=== PATIENT | female | born 1980 | race Caucasian/White ===

== ENCOUNTER → 2016-10-14 | Outpatient (CLI) | payer BC, OTHER ==
--- NOTE | 2016-10-14 14:44 | XR ---
EXAMINATION TYPE: XR chest 2V DATE OF EXAM: 10/14/2016 2:29 PM COMPARISON: 12/31/2014 TECHNIQUE: PA and lateral views submitted. HISTORY: Cough FINDINGS: The lungs are clear and there is no pneumothorax, pleural effusion, or focal pneumonia. Biapical pl eural thickening. Hypertrophic and degenerative change. IMPRESSION: 1. No acute process.
== END | disposition home or self-care (01) ==
LOC: RADXRMAIN 14:05
PROVIDERS: ATTEND Family Medicine
DX: R05 Cough (principal); J45.901 Unspecified asthma with (acute) exacerbation
CPT/HCPCS: 71020

== ENCOUNTER 2019-09-10 09:41 | Emergency (ER) | payer OTHER ==
[2019-09-10 10:09] VITALS: TEMP 98.9
[2019-09-10] MEDS ORDERED: ONDANSETRON 4 MG/2 ML VIAL IVP STA (10:31)
[2019-09-10] MEDS ORDERED: KETOROLAC 30 MG/ML 1 ML VIAL IVP STA (10:31)
[2019-09-10] MEDS ORDERED: SODIUM CHLORIDE 0.9% 1,000 ML IV STA (10:31)
[2019-09-10] MEDS ORDERED: PANTOPRAZOLE 40 MG/10 ML VIAL IVP STA (10:31)
--- NOTE | 2019-09-10 10:52 | ED ---
Abdominal Pain HPI - General Chief Complaint: Abdominal Pain Stated Complaint: upper abd pain Time Seen by Provider: 09/10/19 10:10 Source: patient Limitations: no limitations - History of Present Illness Initial Comments: Patient is a 39-year-old female presenting to emergency Department with complaints of upper abdominal pain since last night. Patient states she noticed the pain last night before bedtime however she thought it was just gas and went to bed. Patient states she woke up this morning feeling okay initially but then the pain came back even worse. Patient describes the pain as pressure, sharp at times, with some radiation into the back. Patient admits to history of multiple C-sections, no other abdominal surgeries. She does admit to mild nausea secondary to pain, no vomiting, no fever. Patient had normal bowel movement this morning. She denies any dysuria. She has no other complaints at this time. - Related Data Home Medications Medication Instructions Recorded Confirmed Albuterol Inhaler [Ventolin Hfa 2 puff INHALATION RT-Q4H PRN 07/03/15 09/10/19 Inhaler] Cetirizine HCl 10 mg PO DAILY 09/10/19 09/10/19 Fluticasone Nasal [place] [Flonase 2 spray EA NOSTRIL DAILY 09/10/19 09/10/19 Nasal [place]] Fluticasone/Salmeterol 1 puff INHALATION RT-DAILY 09/10/19 09/10/19 [Fluticasone-Salmeterol 232-14] Montelukast [Singulair] 10 mg PO DAILY 09/10/19 09/10/19 Previous Rx's Medication Instructions Recorded Ketorolac [Toradol] 10 mg PO Q8HR #10 tab 09/10/19 Ondansetron Odt [Zofran Odt] 4 mg PO Q8HR PRN #10 tab 09/10/19 Allergies Allergy/AdvReac Type Severity Reaction Status Date / Time No Known Allergies Allergy Verified 09/10/19 12:09 Review of Systems ROS Statement: Those systems with pertinent positive or pertinent negative responses have been documented in the HPI. ROS Other: All systems not noted in ROS Statement are negative. Past Medical History Past Medical History: Hypertension Additional Past Medical History / Comment(s): chronic hypertension on meds History of Any Multi-Drug Resistant Organisms: None Reported Past Surgical History: Section Past Anesthesia/Blood Transfusion Reactions: Postoperative Nausea & Vomiting (PONV) Additional Past Anesthesia/Blood Transfusion Reaction / Comment(s): discussed with aa before surgery Past Psychological History: No Psychological Hx Reported Smoking Status: Never smoker Past Alcohol Use History: None Reported Past Drug Use History: None Reported - Past Family History Mother History Unknown: Yes Family Medical History: Hypertension, Rheumatoid Arthritis (RA) General Exam - General Exam Comments Initial Comments: GENERAL: Well-appearing, well-nourished and in no acute distress. HEAD: Atraumatic, normocephalic. EYES: Pupils equal round and reactive to light, extraocular movements intact, sclera anicteric, conjunctiva are normal. ENT: TMs normal, nares patent, oropharynx clear without exudates. Moist mucous membranes. NECK: Normal range of motion, supple without lymphadenopathy or JVD. LUNGS: Breath sounds clear to auscultation bilaterally and equal. No wheezes rales or rhonchi. HEART: Regular rate and rhythm without murmurs, rubs or gallops. ABDOMEN: Tender to palpation epigastric and right upper quadrant. Positive Putnam sign. Soft, normoactive bowel sounds. No rebound. No masses appreciated. : Deferred EXTREMITIES: Normal range of motion, no pitting or edema. No clubbing or cyanosis. NEUROLOGICAL: Normal speech, normal gait. PSYCH: Normal mood, normal affect. SKIN: Warm, Dry, normal turgor, no rashes or lesions noted. Limitations: no limitations Course Vital Signs 09/10/19 09/10/19 09/10/19 10:06 10:08 11:08 Temperature 98.9 F Pulse Rate 94 88 Respiratory 16 20 20 Rate Blood Pressure 190/103 162/99 O2 Sat by Pulse 97 98 Oximetry 09/10/19 12:41 Temperature Pulse Rate Respiratory 20 Rate Blood Pressure O2 Sat by Pulse Oximetry Medical Decision Making - Medical Decision Making Patient is a 39-year-old female presenting with right upper quadrant pain since last night. Lab work shows slightly elevated liver enzymes, bilirubin is normal. Urine is normal, not . Ultrasound of the gallbladder shows gallstones present, no signs of acute cholecystitis. I discussed with patient this is most likely biliary colic. Patient will be given referral to surgeon for further management. Patient was given fluids, pain control and reports improvement in her symptoms. She will be sent home with some Toradol and Zofran to take as needed for nausea. She is in agreement with this plan of care. Return parameters were discussed with the patient she verbalized understanding. Case discussed with Dr. Adamson. - Lab Data Result diagrams: 09/10/19 11:09/10/19 11:01 Lab Results 09/10/19 09/10/19 09/10/19 Range/Units 11:01 11:01 11:01 WBC 7.1 (3.8-10.6) k/uL RBC 5.02 (3.80-5.40) m/uL Hgb 15.3 (11.4-16.0) gm/dL Hct 45.2 (34.0-46.0) % MCV 90.1 (80.0-100.0) fL MCH 30.6 (25.0-35.0) pg MCHC 33.9 (31.0-37.0) g/dL RDW 12.8 (11.5-15.5) % Plt Count 164 (150-450) k/uL Neutrophils % 64 % Lymphocytes % 25 % Monocytes % 5 % Eosinophils % 4 % Basophils % 1 % Neutrophils # 4.5 (1.3-7.7) k/uL Lymphocytes # 1.8 (1.0-4.8) k/uL Monocytes # 0.3 (0-1.0) k/uL Eosinophils # 0.3 (0-0.7) k/uL Basophils # 0.1 (0-0.2) k/uL PT (9.0-12.0) sec INR (<1.2) APTT (22.0-30.0) sec Sodium 140 (137-145) mmol/L Potassium 4.4 (3.5-5.1) mmol/L Chloride 105 (98-107) mmol/L Carbon Dioxide 22 (22-30) mmol/L Anion Gap 13 mmol/L BUN 15 (7-17) mg/dL Creatinine 0.73 (0.52-1.04) mg/dL Est GFR (CKD-EPI)AfAm >90 (>60 ml/min/1.73 sqM) Est GFR (CKD-EPI)NonAf >90 (>60 ml/min/1.73 sqM) Glucose 159 H (74-99) mg/dL Calcium 10.8 H (8.4-10.2) mg/dL Total Bilirubin 1.0 (0.2-1.3) mg/dL AST 134 H (14-36) U/L ALT 117 H (4-34) U/L Alkaline Phosphatase 111 (38-126) U/L Total Protein 8.2 (6.3-8.2) g/dL Albumin 4.8 (3.5-5.0) g/dL Amylase 59 (30-110) U/L Lipase 111 (23-300) U/L Urine Color Urine Appearance (Clear) Urine pH (5.0-8.0) Ur Specific [place] (1.001-1.035) Urine Protein (Negative) Urine Glucose (UA) (Negative) Urine Ketones (Negative) Urine Blood (Negative) Urine Nitrite (Negative) Urine Bilirubin (Negative) Urine Urobilinogen (<2.0) mg/dL Ur Leukocyte Esterase (Negative) Urine HCG, Qual Not Detected (Not Detectd) 09/10/19 09/10/19 Range/Units 11:01 12:09 WBC (3.8-10.6) k/uL RBC (3.80-5.40) m/uL Hgb (11.4-16.0) gm/dL Hct (34.0-46.0) % MCV (80.0-100.0) fL MCH (25.0-35.0) pg MCHC (31.0-37.0) g/dL RDW (11.5-15.5) % Plt Count (150-450) k/uL Neutrophils % % Lymphocytes % % Monocytes % % Eosinophils % % Basophils % % Neutrophils # (1.3-7.7) k/uL Lymphocytes # (1.0-4.8) k/uL Monocytes # (0-1.0) k/uL Eosinophils # (0-0.7) k/uL Basophils # (0-0.2) k/uL PT 9.8 (9.0-12.0) sec INR 0.9 (<1.2) APTT 26.7 (22.0-30.0) sec Sodium (137-145) mmol/L Potassium (3.5-5.1) mmol/L Chloride (98-107) mmol/L Carbon Dioxide (22-30) mmol/L Anion Gap mmol/L BUN (7-17) mg/dL Creatinine (0.52-1.04) mg/dL Est GFR (CKD-EPI)AfAm (>60 ml/min/1.73 sqM) Est GFR (CKD-EPI)NonAf (>60 ml/min/1.73 sqM) Glucose (74-99) mg/dL Calcium (8.4-10.2) mg/dL Total Bilirubin (0.2-1.3) mg/dL AST (14-36) U/L ALT (4-34) U/L Alkaline Phosphatase (38-126) U/L Total Protein (6.3-8.2) g/dL Albumin (3.5-5.0) g/dL Amylase (30-110) U/L Lipase (23-300) U/L Urine Color Yellow Urine Appearance Clear (Clear) Urine pH 7.0 (5.0-8.0) Ur Specific [place]tt 1.016 (1.001-1.035) Urine Protein Negative (Negative) Urine Glucose (UA) Negative (Negative) Urine Ketones Negative (Negative) Urine Blood Negative (Negative) Urine Nitrite Negative (Negative) Urine Bilirubin Negative (Negative) Urine Urobilinogen <2.0 (<2.0) mg/dL Ur Leukocyte Esterase Negative (Negative) Urine HCG, Qual (Not Detectd) Disposition Clinical Impression: RUQ pain, Biliary colic Disposition: HOME SELF-CARE Condition: Stable Instructions (If sedation given, give patient instructions): Biliary Colic (ED) Additional Instructions: Please return to the Emergency Department if symptoms worsen or any other concerns. Follow-up with surgeon/GI as discussed. Limit fatty foods. Prescriptions: Ketorolac [Toradol] 10 mg PO Q8HR #10 tab Ondansetron Odt [Zofran Odt] 4 mg PO Q8HR PRN #10 tab PRN Reason: Nausea Is patient prescribed a controlled substance at d/c from ED?: No Referrals: Mick Trevizo [Primary Care Provider] - 1-2 days Johnson Maher MD [STAFF PHYSICIAN] - 1-2 days
[2019-09-10 11:19] LABS: Appearance,Urine Clear (Clear); Bilirubin,Urine Negative (Negative); Blood,Urine Negative (Negative); Color,Urine Yellow; Glucose,Urine (UA) Negative (Negative); Ketones,Urine Negative (Negative); Leukocyte Esterase,Urine Negative (Negative); Nitrite,Urine Negative (Negative); Protein,Urine Negative (Negative); Specific Gravity,Urine 1.016 (1.001-1.035); Urobilinogen,Urine <2.0 mg/dL (<2.0)
[2019-09-10 11:20] LABS: Basophils # (A) 0.1 k/uL (0-0.2); Basophils % (A) 1 %; Eosinophils # (A) 0.3 k/uL (0-0.7); Eosinophils % (A) 4 %; HCT 45.2 % (34.0-46.0); HGB 15.3 gm/dL (11.4-16.0); Lymphocytes # (A) 1.8 k/uL (1.0-4.8); Lymphocytes % (A) 25 %; MCH 30.6 pg (25.0-35.0); MCHC 33.9 g/dL (31.0-37.0); MCV 90.1 fL (80.0-100.0); Mean Platelet Volume 7.8; Monocytes # (A) 0.3 k/uL (0-1.0); Monocytes % (A) 5 %; Neutrophils # (A) 4.5 k/uL (1.3-7.7); Neutrophils % (A) 64 %; Platelet Count 164 k/uL (150-450); RBC 5.02 m/uL (3.80-5.40); RDW 12.8 % (11.5-15.5); WBC 7.1 k/uL (3.8-10.6)
[2019-09-10 11:26] LABS: ALT 117 U/L (4-34); AST 134 U/L (14-36); African American GFR (CKD) >90 (>60 ml/min/1.73 sqM); Albumin 4.8 g/dL (3.5-5.0); Alkaline Phosphatase 111 U/L (38-126); Amylase 59 U/L (30-110); Anion Gap 13 mmol/L; Blood Urea Nitrogen 15 mg/dL (7-17); Calcium 10.8 mg/dL (8.4-10.2); Carbon Dioxide 22 mmol/L (22-30); Chloride 105 mmol/L (98-107); Glucose 159 mg/dL (74-99); Non-African American GFR(CKD) >90 (>60 ml/min/1.73 sqM); Potassium 4.4 mmol/L (3.5-5.1); Sodium 140 mmol/L (137-145); Total Protein 8.2 g/dL (6.3-8.2)
[2019-09-10 11:31] VITALS: RESP 20
[2019-09-10 11:32] VITALS: BP 162/99; PULSE 88
--- NOTE | 2019-09-10 11:39 | US ---
EXAMINATION TYPE: US gallbladder DATE OF EXAM: 09/10/2019 COMPARISON: NONE CLINICAL HISTORY: RUQ pain, nausea. RUQ pain and nausea. EXAM MEASUREMENTS: Liver Length: 19.4 cm Gallbladder Wall: .4 cm CBD: .7 cm Right Kidney: 12.7 x 5.0 x 6.5 cm Pancreas: Obscured by bowel gas Liver: Increased attenuation hepatomegaly. Gallbladder: Gallstones seen. Evidence for sonographic Putnam's sign: Yes CBD: upper limits. Right Kidney: Sponge appearance. IMPRESSION: 1. Hepatomegaly with underlying fatty hepatic infiltration. 2. Uncomplicated cholelithiasis.
[2019-09-10 12:26] LABS: INR 0.9 (<1.2); Partial Thromboplastin Time 26.7 sec (22.0-30.0); Prothrombin Time 9.8 sec (9.0-12.0)
== END 2019-09-10 12:42 | disposition home or self-care (01) ==
LOC: EC 09:41
DX: K80.50 Calculus of bile duct without cholangitis or cholecystitis without obstruction (principal); I10 Essential (primary) hypertension; R74.8 Abnormal levels of other serum enzymes
CPT/HCPCS: 36415; 80053; 82150; 83690; 85025; 85610; 85730; 81003; 81025; 76705; 99284; 96374; 96375 ×2; 96361; J2405; J1885; C9113

== ENCOUNTER → 2019-09-19 | Outpatient (CLI) | payer OTHER ==
--- NOTE | 2019-09-19 14:30 | XR ---
EXAMINATION TYPE: XR chest 2V DATE OF EXAM: 09/19/2019 COMPARISON: 10/14/2016 TECHNIQUE: PA and lateral views submitted. HISTORY: Cough FINDINGS: Left lower lobe infiltrate. No pleural effusion or pneumothorax. 1 cm nodule left lung apex. No overt failure. Heart size normal. IMPRESSION: 1. Left lower lobe infiltrate correlate for pneumonia. 2. There is a 1 cm nodule left lung apex. Recommend CT chest.
== END ==
LOC: RADXRMAIN 13:52
PROVIDERS: ATTEND Family Medicine
DX: R91.1 Solitary pulmonary nodule (principal); R91.8 Other nonspecific abnormal finding of lung field; J45.901 Unspecified asthma with (acute) exacerbation
CPT/HCPCS: 71046

== ENCOUNTER → 2019-10-09 | Outpatient (CLI) | payer OTHER ==
--- NOTE | 2019-10-09 12:28 | CT ---
EXAMINATION TYPE: CT chest wo con DATE OF EXAM: 10/09/2019 COMPARISON: Chest x-ray dated 09/19/2019 HISTORY: Lung nodule CT DLP: 570.7 mGycm. Automated Exposure Control for Dose Reduction was Utilized. TECHNIQUE: CT scan of the thorax is performed without IV contrast. FINDINGS: LUNGS: The lungs are grossly clear, there is no concerning parenchymal mass identified. There is a ca lcified right apical benign granuloma measuring 5 mm on series 4 image 16. There is no pleural effusi on or pneumothorax seen. The tracheobronchial tree is patent. Lingular atelectasis and/or scarring i s seen. Scarring is also seen at the lung bases that is linear. MEDIASTINUM: Lack of IV contrast is noted to limit evaluation for mediastinal and especially hilar ad enopathy. There are no definitive greater than 1 cm hilar or mediastinal lymph nodes. No cardiomega ly or pericardial effusion is seen. OTHER: Hepatic steatosis and cholelithiasis are incidentally seen in the limited images of the unenha nced upper abdomen. Mild multilevel degenerative change of the spine. IMPRESSION: 1. The previously seen lung nodule on the left upper lobe appears artifactual on the prior chest x-ra y of 09/19/2019 as no left pulmonary nodule is seen on CT. Multifocal pleural parenchymal scarring is noted in the lingula at the lung bases. 2. Calcified benign right apical 5 mm granuloma. 3. Hepatic steatosis and cholelithiasis.
== END | disposition home or self-care (01) ==
LOC: RADCTMAIN 11:43
PROVIDERS: ATTEND Family Medicine
DX: J98.4 Other disorders of lung (principal); J84.10 Pulmonary fibrosis, unspecified; K76.0 Fatty (change of) liver, not elsewhere classified; K80.20 Calculus of gallbladder without cholecystitis without obstruction
CPT/HCPCS: 71250

== ENCOUNTER 2020-07-29 06:34 | Observation (INO) | payer OTHER ==
[2020-07-29] MEDS ORDERED: SODIUM CHLORIDE 0.9% 1,000 ML IV STA (06:48)
[2020-07-29] MEDS ORDERED: HYDROmorphone 0.5 MG/0.5 ML SYRINGE IVP STA (06:54)
[2020-07-29] MEDS: ONDANSETRON 4 MG/2 ML VIAL IVP STA ×2 (07:04→16:30)
[2020-07-29 07:08] LABS: Basophils # (A) 0.1 k/uL (0-0.2); Basophils % (A) 1 %; Eosinophils # (A) 0.2 k/uL (0-0.7); Eosinophils % (A) 2 %; HCT 42.9 % (34.0-46.0); Lymphocytes # (A) 1.9 k/uL (1.0-4.8); Lymphocytes % (A) 19 %; MCH 31.8 pg (25.0-35.0); MCHC 34.9 g/dL (31.0-37.0); MCV 91.3 fL (80.0-100.0); Mean Platelet Volume 6.8; Monocytes # (A) 0.5 k/uL (0-1.0); Monocytes % (A) 5 %; Neutrophils # (A) 7.3 k/uL (1.3-7.7); Neutrophils % (A) 73 %; Platelet Count 299 k/uL (150-450); RDW 12.5 % (11.5-15.5)
--- NOTE | 2020-07-29 07:14 | ED ---
Abdominal Pain HPI - General Chief Complaint: Abdominal Pain Stated Complaint: Abd Pain Time Seen by Provider: 07/29/20 06:43 Source: patient, RN notes reviewed Mode of arrival: ambulatory Limitations: no limitations - History of Present Illness Initial Comments: This a 40-year-old female presents emergency Department chief complaint of right upper quadrant pain. Patient states started in the middle of night. Patient states is severe pain on her right side into her back. Patient states that she had similar pain like this in September and which she was diagnosed with cholelithiasis was scheduled for surgery but was canceled secondary to Covid. Patient states that she cannot remember the surgeon's name. Patient does admit to nausea no vomiting no diarrhea no constipation. Patient states that nothing is making her pain feel better or if no history kidney stones. - Related Data Home Medications Medication Instructions Recorded Confirmed Albuterol Inhaler (Mhu) [Ventolin 2 puff INHALATION RT-Q4H PRN 07/03/15 09/10/19 Hfa Inhaler (Mhu)] Cetirizine HCl 10 mg PO DAILY 09/10/19 09/10/19 Fluticasone Nasal [place] [Flonase 2 spray EA NOSTRIL DAILY 09/10/19 09/10/19 Nasal [place]] Fluticasone/Salmeterol 1 puff INHALATION RT-DAILY 09/10/19 09/10/19 [Fluticasone-Salmeterol 232-14] Montelukast [Singulair] 10 mg PO DAILY 09/10/19 09/10/19 Previous Rx's Medication Instructions Recorded Ketorolac [Toradol] 10 mg PO Q8HR #10 tab 09/10/19 Ondansetron Odt [Zofran Odt] 4 mg PO Q8HR PRN #10 tab 09/10/19 Allergies Allergy/AdvReac Type Severity Reaction Status Date / Time No Known Allergies Allergy Verified 07/29/20 06:41 Review of Systems ROS Statement: Those systems with pertinent positive or pertinent negative responses have been documented in the HPI. ROS Other: All systems not noted in ROS Statement are negative. Past Medical History Past Medical History: Hypertension Additional Past Medical History / Comment(s): chronic hypertension on meds History of Any Multi-Drug Resistant Organisms: None Reported Past Surgical History: Section Past Anesthesia/Blood Transfusion Reactions: Postoperative Nausea & Vomiting (PONV) Additional Past Anesthesia/Blood Transfusion Reaction / Comment(s): discussed with aa before surgery Past Psychological History: No Psychological Hx Reported Smoking Status: Never smoker Past Alcohol Use History: None Reported Past Drug Use History: None Reported - Past Family History Mother History Unknown: Yes Family Medical History: Hypertension, Rheumatoid Arthritis (RA) General Exam Limitations: no limitations General appearance: alert, in no apparent distress Head exam: Present: atraumatic, normocephalic, normal inspection Eye exam: Present: normal appearance, PERRL, EOMI. Absent: scleral icterus, conjunctival injection, periorbital swelling ENT exam: Present: normal exam, normal oropharynx, mucous membranes moist Neck exam: Present: normal inspection, full ROM. Absent: tenderness, m eningismus, lymphadenopathy Respiratory exam: Present: normal lung sounds bilaterally. Absent: respiratory distress, wheezes, rales, rhonchi, stridor Cardiovascular Exam: Present: regular rate, normal rhythm, normal heart sounds. Absent: systolic murmur, diastolic murmur, rubs, gallop, clicks GI/Abdominal exam: Present: soft, tenderness (Right upper quadrant moderate), normal bowel sounds. Absent: distended, guarding, rebound, rigid Back exam: Absent: CVA tenderness (R), CVA tenderness (L) Skin exam: Present: warm, dry, intact, normal color. Absent: rash Course Vital Signs 07/29/20 06:37 Temperature 97.6 F Pulse Rate 79 Respiratory 18 Rate Blood Pressure 139/90 O2 Sat by Pulse 100 Oximetry Medical Decision Making - Medical Decision Making 40-year-old female presented for abdominal pain. Patient has acute cholecystitis. Patient has mild transaminitis,, white count is 10, afebrile. Patient had severe nausea and pain patient will be admitted to on-call surgery patient was started on antibiotics. - Lab Data Result diagrams: 07/29/20 06:56 07/29/20 06:56 Lab Results 07/29/20 07/29/20 07/29/20 Range/Units 06:56 06:56 06:56 WBC 10.0 (3.8-10.6) k/uL RBC 4.70 (3.80-5.40) m/uL Hgb 15.0 (11.4-16.0) gm/dL Hct 42.9 (34.0-46.0) % MCV 91.3 (80.0-100.0) fL MCH 31.8 (25.0-35.0) pg MCHC 34.9 (31.0-37.0) g/dL RDW 12.5 (11.5-15.5) % Plt Count 299 (150-450) k/uL MPV 6.8 Neutrophils % 73 % Lymphocytes % 19 % Monocytes % 5 % Eosinophils % 2 % Basophils % 1 % Neutrophils # 7.3 (1.3-7.7) k/uL Lymphocytes # 1.9 (1.0-4.8) k/uL Monocytes # 0.5 (0-1.0) k/uL Eosinophils # 0.2 (0-0.7) k/uL Basophils # 0.1 (0-0.2) k/uL Sodium 140 (137-145) mmol/L Potassium 4.1 (3.5-5.1) mmol/L Chloride 107 (98-107) mmol/L Carbon Dioxide 26 (22-30) mmol/L Anion Gap 7 mmol/L BUN 21 H (7-17) mg/dL Creatinine 0.88 (0.52-1.04) mg/dL Est GFR (CKD-EPI)AfAm >90 (>60 ml/min/1.73 sqM) Est GFR (CKD-EPI)NonAf 82 (>60 ml/min/1.73 sqM) Glucose 142 H (74-99) mg/dL Plasma Lactic Acid Rey (0.7-2.0) mmol/L Calcium 9.6 (8.4-10.2) mg/dL Total Bilirubin 0.7 (0.2-1.3) mg/dL AST 80 H (14-36) U/L ALT 75 H (4-34) U/L Alkaline Phosphatase 55 (38-126) U/L Total Protein 7.7 (6.3-8.2) g/dL Albumin 4.7 (3.5-5.0) g/dL Amylase 62 (30-110) U/L Lipase 177 (23-300) U/L Urine Color Yellow Urine Appearance Cloudy H (Clear) Urine pH 6.0 (5.0-8.0) Ur Specific [place] 1.019 (1.001-1.035) Urine Protein Negative (Negative) Urine Glucose (UA) Negative (Negative) Urine Ketones Negative (Negative) Urine Blood Negative (Negative) Urine Nitrite Negative (Negative) Urine Bilirubin Negative (Negative) Urine Urobilinogen <2.0 (<2.0) mg/dL Ur Leukocyte Esterase Negative (Negative) Urine RBC 3 (0-5) /hpf Urine WBC 1 (0-5) /hpf Ur Squamous Epith Cells 16 H (0-4) /hpf Urine Bacteria Occasional H (None) /hpf Hyaline Casts 1 (0-2) /lpf Urine Mucus Occasional H (None) /hpf Urine Sperm Rare (None) /hpf Urine HCG, Qual (Not Detectd) 07/29/20 07/29/20 Range/Units 06:56 06:56 WBC (3.8-10.6) k/uL RBC (3.80-5.40) m/uL Hgb (11.4-16.0) gm/dL Hct (34.0-46.0) % MCV (80.0-100.0) fL MCH (25.0-35.0) pg MCHC (31.0-37.0) g/dL RDW (11.5-15.5) % Plt Count (150-450) k/uL MPV Neutrophils % % Lymphocytes % % Monocytes % % Eosinophils % % Basophils % % Neutrophils # (1.3-7.7) k/uL Lymphocytes # (1.0-4.8) k/uL Monocytes # (0-1.0) k/uL Eosinophils # (0-0.7) k/uL Basophils # (0-0.2) k/uL Sodium (137-145) mmol/L Potassium (3.5-5.1) mmol/L Chloride (98-107) mmol/L Carbon Dioxide (22-30) mmol/L Anion Gap mmol/L BUN (7-17) mg/dL Creatinine (0.52-1.04) mg/dL Est GFR (CKD-EPI)AfAm (>60 ml/min/1.73 sqM) Est GFR (CKD-EPI)NonAf (>60 ml/min/1.73 sqM) Glucose (74-99) mg/dL Plasma Lactic Acid Rey 1.0 (0.7-2.0) mmol/L Calcium (8.4-10.2) mg/dL Total Bilirubin (0.2-1.3) mg/dL AST (14-36) U/L ALT (4-34) U/L Alkaline Phosphatase (38-126) U/L Total Protein (6.3-8.2) g/dL Albumin (3.5-5.0) g/dL Amylase (30-110) U/L Lipase (23-300) U/L Urine Color Urine Appearance (Clear) Urine pH (5.0-8.0) Ur Specific [place] (1.001-1.035) Urine Protein (Negative) Urine Glucose (UA) (Negative) Urine Ketones (Negative) Urine Blood (Negative) Urine Nitrite (Negative) Urine Bilirubin (Negative) Urine Urobilinogen (<2.0) mg/dL Ur Leukocyte Esterase (Negative) Urine RBC (0-5) /hpf Urine WBC (0-5) /hpf Ur Squamous Epith Cells (0-4) /hpf Urine Bacteria (None) /hpf Hyaline Casts (0-2) /lpf Urine Mucus (None) /hpf Urine Sperm (None) /hpf Urine HCG, Qual Not Detected (Not Detectd) Disposition Clinical Impression: Acute cholecystitis Disposition: ADMITTED IP TO THIS HOSP Condition: Fair Referrals: Mick Trevizo [Primary Care Provider] - 1-2 days
[2020-07-29 07:17] LABS: ALT 75 U/L (4-34); AST 80 U/L (14-36); African American GFR (CKD) >90 (>60 ml/min/1.73 sqM); Albumin 4.7 g/dL (3.5-5.0); Alkaline Phosphatase 55 U/L (38-126); Amylase 62 U/L (30-110); Anion Gap 7 mmol/L; Blood Urea Nitrogen 21 mg/dL (7-17); Calcium 9.6 mg/dL (8.4-10.2); Carbon Dioxide 26 mmol/L (22-30); Chloride 107 mmol/L (98-107); Glucose 142 mg/dL (74-99); Lipase 177 U/L (23-300); Non-African American GFR(CKD) 82 (>60 ml/min/1.73 sqM); Potassium 4.1 mmol/L (3.5-5.1); Sodium 140 mmol/L (137-145); Total Bilirubin 0.7 mg/dL (0.2-1.3); Total Protein 7.7 g/dL (6.3-8.2)
[2020-07-29 07:25] LABS: Appearance,Urine Cloudy (Clear); Bacteria,Urine Occasional /hpf; Bilirubin,Urine Negative (Negative); Blood,Urine Negative (Negative); Color,Urine Yellow; Glucose,Urine (UA) Negative (Negative); Hyaline Casts,Urine 1 /lpf (0-2); Ketones,Urine Negative (Negative); Leukocyte Esterase,Urine Negative (Negative); Mucus,Urine Occasional /hpf; Nitrite,Urine Negative (Negative); Protein,Urine Negative (Negative); RBC,Urine 3 /hpf (0-5); Specific Gravity,Urine 1.019 (1.001-1.035); Sperm,Urine Rare /hpf; Squamous Epithelial Cell,Urine 16 /hpf (0-4); Urobilinogen,Urine <2.0 mg/dL (<2.0); WBC,Urine 1 /hpf (0-5)
--- NOTE | 2020-07-29 08:08 | US ---
EXAMINATION TYPE: US gallbladder DATE OF EXAM: 07/29/2020 COMPARISON: NONE CLINICAL HISTORY: pain. EXAM MEASUREMENTS: Liver Length: 18.3 cm Gallbladder Wall: 0.4 cm CBD: 0.9 cm Right Kidney: 13.3 x 4.0 x 5.3 cm Patient of large body habitus Pancreas: Obscured by bowel gas Liver: Increased attenuation, enlarged Gallbladder: stones, hyperechoic ring surrounding gallbladder it is difficult to assess whether this is edematous wall or focal fatty sparing in the liver Evidence for sonographic Putnam's sign: tenderness here CBD: wnl Right Kidney: calcified medullary pyramids suggestive of medullary sponge kidneys, cyst measuring 1. 8 x 2.1 x 1.9cm, enlarged IMPRESSION: 1. Cholelithiasis with gallbladder wall thickening. Common bile duct is dilated. Correlate clinically for acute cholecystitis. 2. Fatty liver with hepatomegaly. 3. Medullary sponge kidney changes.
[2020-07-29] MEDS ORDERED: PIPERACILLIN-TAZOBACTAM 3.375 GM in SODIUM CHLORIDE 0.9% 100 ML IVPB STA (08:13)
[2020-07-29] MEDS ORDERED: ONDANSETRON 4 MG/2 ML VIAL IVP PRN (08:17)
[2020-07-29] MEDS ORDERED: NALOXONE 0.4 MG/ML 1 ML VIAL IV PRN (08:17)
[2020-07-29] MEDS: SODIUM CHLORIDE 0.9% 1,000 ML IV SCH ×2 (08:29→19:49)
[2020-07-29] MEDS: HYDROmorphone 0.5 MG/0.5 ML SYRINGE IVP PRN ×2 (09:53→21:20)
--- NOTE | 2020-07-29 13:16 | P.GSHP ---
History of Present Illness H&P Date: 07/29/20 CHIEF COMPLAINT: Abdominal pain HISTORY OF PRESENT ILLNESS: This is a 40-year-old female with a known history of hypertension, asthma, umbilical hernia and . She presents to the emergency room with complaints of right upper quadrant pain that started around 3 AM this morning. She reports that the pain was very severe and radiated to her back. She had similar symptoms like this in September and at that time she was diagnosed with cholelithiasis was scheduled for surgery but it was canceled secondary to COVID patient admits to having nausea and vomiting. She denies any fever or chills. Denies any change in bowel habits. PAST MEDICAL HISTORY: See list. PAST SURGICAL HISTORY: See list. MEDICATIONS: See list. ALLERGIES: See list. SOCIAL HISTORY: No illicit drug use. REVIEW OF SYSTEMS: CONSTITUTIONAL: Denies fever or chills. HEENT: Denies blurred vision, vision changes, or eye pain. Denies hemoptysis CARDIOVASCULAR: Denies chest pain or pressure. RESPIRATORY: No shortness of breath. GASTROINTESTINAL: See HPI for pertinent findings HEMATOLOGIC: Denies bleeding disorders. GENITOURINARY: Denies any blood in urine or increased urinary frequency. SKIN: Denies pruitis. Denies rash. PHYSICAL EXAM: VITAL SIGNS: Reviewed GENERAL: Well-developed in no acute distress. HEENT: No sclera icterus. Extraocular movements grossly intact. Moist buccal mucosa. Head is atraumatic, normocephalic. No nasal drainage. ABDOMEN: Soft. right upper quadrant tenderness with palpation. Nondistended. Small Umbilical hernia NEUROLOGIC: Alert and oriented. Cranial nerves II through XII grossly intact. LABORATORY DATA: WBC 10.0 hemoglobin 15 AST 88 ALT 75 lactic 1.0 lipase 177 urine negative UA no evidence of infection IMAGING: abdominal ultrasound shows evidence of cholelithiasis with gallbladder wall thickening. Common bile duct is dilated. Correlate for acute cholecystitis. Fatty liver with hepatomegaly. And medullary sponge kidney changes. ASSESSMENT: 1. Acute cholecystitis 2. Abdominal pain PLAN: -Patient is scheduled for laparoscopic cholecystectomy with Dr. Maher today -Keep patient nothing by mouth -Continue IV Zosyn -Continue IV fluids -Continue pain medication as needed -Consult medicine for medical management Physician Crane Oiler note has been reviewed by physician. Signing provider agrees with the documented findings, assessment, and plan of care. Past Medical History Past Medical History: Asthma, Hypertension Additional Past Medical History / Comment(s): chronic hypertension on meds History of Any Multi-Drug Resistant Organisms: None Reported Past Surgical History: Section Additional Past Surgical History / Comment(s): 3 C SECTIONS Past Anesthesia/Blood Transfusion Reactions: Postoperative Nausea & Vomiting (PONV) Additional Past Anesthesia/Blood Transfusion Reaction / Comment(s): discussed with aa before surgery Past Psychological History: No Psychological Hx Reported Smoking Status: Never smoker Past Alcohol Use History: None Reported Past Drug Use History: None Reported - Past Family History Mother History Unknown: Yes Family Medical History: Hypertension, Rheumatoid Arthritis (RA) Father Family Medical History: Diabetes Mellitus, Hypertension, Thyroid Disorder Medications and Allergies Home Medications Medication Instructions Recorded Confirmed Type Cetirizine HCl 10 mg PO HS 09/10/19 07/29/20 History Montelukast [Singulair] 10 mg PO HS 09/10/19 07/29/20 History Albuterol Inhaler [Ventolin Hfa 2 puff INHALATION RT-QID PRN 07/29/20 07/29/20 History Inhaler] Fluticasone/Salmeterol [Advair 1 puff INHALATION RT-BID 07/29/20 07/29/20 History 250-50 Diskus] lisinopriL [Zestril] 20 mg PO DAILY 07/29/20 07/29/20 History Allergies Allergy/AdvReac Type Severity Reaction Status Date / Time No Known Allergies Allergy Verified 07/29/20 08:18 Surgical - Exam Vital Signs Temp Pulse Resp BP Pulse Ox 97.6 F 79 18 139/90 100 07/29/20 06:37 07/29/20 06:37 07/29/20 06:37 07/29/20 06:37 07/29/20 06:37 Results - Labs 07/29/20 06:56 07/29/20 06:56 Abnormal Lab Results - Last 24 Hours (Table) 07/29/20 07/29/20 Range/Units 06:56 06:56 BUN 21 H (7-17) mg/dL Glucose 142 H (74-99) mg/dL AST 80 H (14-36) U/L ALT 75 H (4-34) U/L Urine Appearance Cloudy H (Clear) Ur Squamous Epith Cells 16 H (0-4) /hpf Urine Bacteria Occasional H (None) /hpf Urine Mucus Occasional H (None) /hpf Diabetes panel 07/29/20 Range/Units 06:56 Sodium 140 (137-145) mmol/L Potassium 4.1 (3.5-5.1) mmol/L Chloride 107 (98-107) mmol/L Carbon Dioxide 26 (22-30) mmol/L BUN 21 H (7-17) mg/dL Creatinine 0.88 (0.52-1.04) mg/dL Glucose 142 H (74-99) mg/dL Calcium 9.6 (8.4-10.2) mg/dL AST 80 H (14-36) U/L ALT 75 H (4-34) U/L Alkaline Phosphatase 55 (38-126) U/L Total Protein 7.7 (6.3-8.2) g/dL Albumin 4.7 (3.5-5.0) g/dL Calcium panel 07/29/20 Range/Units 06:56 Calcium 9.6 (8.4-10.2) mg/dL Albumin 4.7 (3.5-5.0) g/dL Pituitary panel 07/29/20 Range/Units 06:56 Sodium 140 (137-145) mmol/L Potassium 4.1 (3.5-5.1) mmol/L Chloride 107 (98-107) mmol/L Carbon Dioxide 26 (22-30) mmol/L BUN 21 H (7-17) mg/dL Creatinine 0.88 (0.52-1.04) mg/dL Glucose 142 H (74-99) mg/dL Calcium 9.6 (8.4-10.2) mg/dL Adrenal panel 07/29/20 Range/Units 06:56 Sodium 140 (137-145) mmol/L Potassium 4.1 (3.5-5.1) mmol/L Chloride 107 (98-107) mmol/L Carbon Dioxide 26 (22-30) mmol/L BUN 21 H (7-17) mg/dL Creatinine 0.88 (0.52-1.04) mg/dL Glucose 142 H (74-99) mg/dL Calcium 9.6 (8.4-10.2) mg/dL Total Bilirubin 0.7 (0.2-1.3) mg/dL AST 80 H (14-36) U/L ALT 75 H (4-34) U/L Alkaline Phosphatase 55 (38-126) U/L Total Protein 7.7 (6.3-8.2) g/dL Albumin 4.7 (3.5-5.0) g/dL
[2020-07-29] MEDS ORDERED: ALBUTEROL NEBULIZED 2.5 MG/3 ML INHALATION PRN (13:50)
[2020-07-29] MEDS: PIPERACILLIN-TAZOBACTAM 3.375 GM in SODIUM CHLORIDE 0.9% 100 ML IVPB SCH ×2 (15:44→23:09)
[2020-07-29] MEDS ORDERED: HEPARIN SODIUM,PORCINE 5,000 UNIT/ML 1 ML VIAL ONE (16:27)
[2020-07-29] MEDS ORDERED: HEPARIN SODIUM,PORCINE 5,000 UNIT/ML 1 ML VIAL SQ ONE (16:30)
[2020-07-29] MEDS ORDERED: IV FLUID CONTINUATION 400 ML IV ONE (16:30)
[2020-07-29] MEDS ORDERED: GLYCOPYRROLATE 0.2 MG/ML 2 ML VIAL ONE (17:11)
[2020-07-29] MEDS ORDERED: HYDROmorphone (PF) 1 MG/ML ONE (17:11)
[2020-07-29] MEDS ORDERED: fentaNYL (PF) 50 MCG/ML 2 ML AMP ONE (17:11)
[2020-07-29] MEDS ORDERED: PROPOFOL 10 MG/ML 20 ML VIAL IV ONE (17:11)
[2020-07-29] MEDS ORDERED: KETOROLAC 15 MG/ML 1 ML VIAL ONE (17:11)
[2020-07-29] MEDS ORDERED: SUCCINYLCHOLINE CHLORIDE 100 MG/5 ML SYR IV ONE (17:11)
[2020-07-29] MEDS ORDERED: LIDOCAINE 1% INJ 10MG/ML (20 ML MDV) ONE (17:11)
[2020-07-29] MEDS ORDERED: ROCURONIUM 10 MG/ML (10 ML VIAL) IV ONE (17:11)
[2020-07-29] MEDS ORDERED: NEOSTIGMINE 1 MG/ML 10 ML VIAL ONE (17:11)
[2020-07-29] MEDS ORDERED: MIDAZOLAM 2 MG/2 ML VIAL ONE (17:11)
[2020-07-29] MEDS ORDERED: LIDOCAINE 1%-EPI 1:100,000 20 ML VIAL SQ ONE (17:39)
[2020-07-29] MEDS ORDERED: SODIUM CHLORIDE 0.9% 500 ML 500 ML IV ONE (17:43)
--- NOTE | 2020-07-29 17:54 | P.OP ---
Date of Procedure: 07/29/20 Preoperative Diagnosis: Cholecystitis Postoperative Diagnosis: Cholecystitis Cholelithiasis Procedure(s) Performed: Laparoscopic cholecystectomy Anesthesia: IH Surgeon: Johnson Maher Estimated Blood Loss (ml): 5 Pathology: other (gAll bladder) Condition: stable Disposition: PACU Description of Procedure: The patient was placed on the operating table. The patient received a general endotracheal tube anesthesia. The patients abdomen was prepped and draped in the usual sterile fashion. Through an infraumbilical stab incision, the fascia of the anterior abdominal wall was grasped with a pair of Kochers and then the Veress needle was placed in the peritoneal cavity. Position of the Veress needle was confirmed with positive drop test. The abdomen was then insufflated. After adequate insufflation, the 10 mm trocar was placed in the peritoneal cavity. Following this the laparoscope was placed in the peritoneal cavity. The patient was placed in the head-up, right side up position and then a 5 mm trocar was placed in the right lateral and right subcostal position under direct visualization. A 8 mm trocar was placed in the epigastric position. The gallbladder was grasped in the fundus and infundibulum. Traction on the gallbladder was placed in the lateral and the cephalad positions. The triangle of Calot was visualized.. The cystic duct was bluntly dissected until the union of the cystic duct and common bile duct was seen. A critical view of safety was achieved. The cystic duct was then divided and sealed with the Harmonic scissors. A PDS Endoloop was then placed throughout the cystic duct stump. The cystic artery divided and sealed with the Harmonic scissors. The gallbladder was then removed from the liver bed using Harmonic scissors. The gallbladder was then extracted through the epigastric port site. Operative field was checked for any bleeding spots and Harmonic scissors was used to coagulate the liver bed. The abdomen was irrigated. The trocars were removed. The skin was closed using interrupted 3-0 Vicryl suture. Dermabond dressing were applied. The patient tolerated the procedure well.
[2020-07-29] MEDS: SYMBICORT 80-4.5 MCG INHALER INHALATION SCH (20:00)
--- NOTE | 2020-07-29 21:47 | P.CONS ---
History of Present Illness - Reason for Consult Consult date: 07/29/20 - History of Present Illness Patient is a 40-year-old female with a PMH of hypertension, moderate persistent asthma, and cholelithiasis who presented to the emergency room with acute onset of right upper quadrant abdominal pain. The patient was found to have acute cholecystitis on a right upper quadrant ultrasound and was subsequently admitted to the surgery service for cholecystectomy. The patient underwent a cholecy stectomy earlier today with no immediate postoperative complications. The patient was seen postoperatively. She reported excellent control of her pain, currently at a 0 out of 10. She also denied any additional complaints. She denied chest discomfort, shortness of breath, palpitations, nausea, vomiting. Also denied cough, fever, chills. Denied weakness, and numbness, tingling. Notes compliance with her medications including inhalers at home. Review of Systems Pertinent positives and negatives as discussed in HPI, a complete review of systems was performed and all other systems are negative. Past Medical History Past Medical History: Asthma, Hypertension Additional Past Medical History / Comment(s): chronic hypertension on meds History of Any Multi-Drug Resistant Organisms: None Reported Past Surgical History: Section Additional Past Surgical History / Comment(s): 3 C SECTIONS Past Anesthesia/Blood Transfusion Reactions: Postoperative Nausea & Vomiting (PONV) Additional Past Anesthesia/Blood Transfusion Reaction / Comm: discussed with aa before surgery Past Psychological History: No Psychological Hx Reported Smoking Status: Never smoker Past Alcohol Use History: None Reported Past Drug Use History: None Reported - Past Family History Mother History Unknown: Yes Family Medical History: Hypertension, Rheumatoid Arthritis (RA) Father Family Medical History: Diabetes Mellitus, Hypertension, Thyroid Disorder Medications and Allergies Home Medications Medication Instructions Recorded Confirmed Type Cetirizine HCl 10 mg PO HS 09/10/19 07/29/20 History Montelukast [Singulair] 10 mg PO HS 09/10/19 07/29/20 History Albuterol Inhaler [Ventolin Hfa 2 puff INHALATION RT-QID PRN 07/29/20 07/29/20 History Inhaler] Fluticasone/Salmeterol [Advair 1 puff INHALATION RT-BID 07/29/20 07/29/20 History 250-50 Diskus] lisinopriL [Zestril] 20 mg PO DAILY 07/29/20 07/29/20 History Allergies Allergy/AdvReac Type Severity Reaction Status Date / Time No Known Allergies Allergy Verified 07/29/20 16:25 Physical Exam Vitals: Vital Signs Temp Pulse Pulse Pulse Pulse Resp BP 07/29/20 20:28 77 16 07/29/20 19:58 69 16 07/29/20 19:43 69 16 07/29/20 19:28 70 16 07/29/20 19:13 79 16 07/29/20 18:58 97.9 F 89 16 07/29/20 18:46 76 16 07/29/20 18:35 74 18 07/29/20 18:09 71 16 07/29/20 17:54 97.0 F L 72 16 07/29/20 16:26 97.8 F 96 16 07/29/20 10:00 98.1 F 77 20 07/29/20 09:56 98.1 F 77 20 07/29/20 09:00 98.2 F 78 18 140/79 07/29/20 06:37 97.6 F 79 18 139/90 BP Pulse Ox 07/29/20 20:28 132/81 98 07/29/20 19:58 124/81 96 07/29/20 19:43 129/82 91 L 07/29/20 19:28 134/83 96 07/29/20 19:13 117/74 94 L 07/29/20 18:58 135/79 94 L 07/29/20 18:46 144/65 95 07/29/20 18:35 132/61 97 07/29/20 18:09 129/60 100 07/29/20 17:54 130/58 97 07/29/20 16:26 154/72 99 07/29/20 10:00 138/80 99 07/29/20 09:56 138/80 99 07/29/20 09:00 98 07/29/20 06:37 100 Intake and Output 07/29/20 07/29/20 07/29/20 06:59 14:59 22:59 Intake Total 500 Output Total 5 Balance 495 Intake: IV 500 Output: Estimated Blood Loss 5 Other: Voiding Method Toilet # Voids 1 Weight 105.233 kg 105.233 kg 105.233 kg General: non toxic, no distress, appears at stated age, morbidly obese Derm: no unusual rashes/lesions no unusual ecchymoses, warm, dry Head: atraumatic, normocephalic, symmetric Eyes: EOMI, no lid lag, anicteric sclera, pupils equal round reactive to light ENT: Nose and ears atraumatic, no thrush, no pharyngeal erythema Neck: No thyromegaly, no cervical lymphadenopathy, trachea midline, supple Mouth: no lip lesion, mucus membranes moist Cardiovascular: S1S2 reg, no murmur, positive posterior tibial pulse bilateral, no edema, capillary refill less than 2 seconds Lungs: CTA bilateral, no rhonchi, no rales , no accessory muscle use Abdominal: soft, postsurgical laparoscopic cholecystectomy, laparoscopic incisions closed, nontender to palpation, no guarding, no appreciable organomegaly, normal bowel sounds Ext: no gross muscle atrophy, muscle strength 5 out of 5 in all 4 extremities grossly, no contractures, Neuro: CN II-XI grossly intact, light touch intact all 4 extremities, finger to nose within normal limits, Psych: Alert, oriented, appropriate affect Results CBC & Chem 7: 07/29/20 06:56 07/29/20 06:56 Labs: Abnormal Lab Results - Last 24 Hours (Table) 07/29/20 07/29/20 Range/Units 06:56 06:56 BUN 21 H (7-17) mg/dL Glucose 142 H (74-99) mg/dL AST 80 H (14-36) U/L ALT 75 H (4-34) U/L Urine Appearance Cloudy H (Clear) Ur Squamous Epith Cells 16 H (0-4) /hpf Urine Bacteria Occasional H (None) /hpf Urine Mucus Occasional H (None) /hpf Assessment and Plan Plan: Hypertension -Continue with home lisinopril Moderate persistent asthma -Continue with home inhalers Hyperglycemia -Check A1c Abnormal LFTs -Likely secondary to cholecystitis Status post laparoscopic cholecystectomy -Management including pain control as per the surgery service
[2020-07-29] MEDS: METOCLOPRAMIDE 5 MG/ML 2 ML VIAL IVP SCH (23:45)
[2020-07-29] MEDS: IBUPROFEN 600 MG TAB PO PRN (23:45)
[2020-07-30] MEDS: HYDROmorphone 0.5 MG/0.5 ML SYRINGE IVP PRN (04:30)
[2020-07-30] MEDS: SODIUM CHLORIDE 0.9% 1,000 ML IV SCH ×2 (06:23→07:59)
[2020-07-30] MEDS: METOCLOPRAMIDE 5 MG/ML 2 ML VIAL IVP SCH ×2 (06:26→13:13)
[2020-07-30 06:49] LABS: Basophils % (A) 0 %; Eosinophils % (A) 0 %; Lymphocytes # (A) 1.6 k/uL (1.0-4.8); Lymphocytes % (A) 19 %; MCH 32.1 pg (25.0-35.0); MCHC 35.1 g/dL (31.0-37.0); MCV 91.5 fL (80.0-100.0); Mean Platelet Volume 6.5; Monocytes # (A) 0.4 k/uL (0-1.0); Monocytes % (A) 5 %; Neutrophils # (A) 6.1 k/uL (1.3-7.7); Neutrophils % (A) 75 %; Platelet Count 242 k/uL (150-450); RBC 4.04 m/uL (3.80-5.40); RDW 12.5 % (11.5-15.5); WBC 8.2 k/uL (3.8-10.6)
[2020-07-30 07:01] LABS: ALT 168 U/L (4-34); AST 89 U/L (14-36); African American GFR (CKD) >90 (>60 ml/min/1.73 sqM); Albumin 3.6 g/dL (3.5-5.0); Alkaline Phosphatase 43 U/L (38-126); Anion Gap 4 mmol/L; Blood Urea Nitrogen 16 mg/dL (7-17); Calcium 8.5 mg/dL (8.4-10.2); Carbon Dioxide 25 mmol/L (22-30); Chloride 109 mmol/L (98-107); Glucose 100 mg/dL (74-99); Non-African American GFR(CKD) 83 (>60 ml/min/1.73 sqM); Sodium 138 mmol/L (137-145); Total Bilirubin 0.7 mg/dL (0.2-1.3); Total Protein 6.1 g/dL (6.3-8.2)
[2020-07-30] MEDS: PIPERACILLIN-TAZOBACTAM 3.375 GM in SODIUM CHLORIDE 0.9% 100 ML IVPB SCH (07:51)
[2020-07-30] MEDS: SYMBICORT 80-4.5 MCG INHALER INHALATION SCH (08:14)
[2020-07-30] MEDS: IBUPROFEN 600 MG TAB PO PRN (08:47)
[2020-07-30] MEDS ORDERED: lisinopriL 20 MG TAB PO SCH (09:00)
[2020-07-30] MEDS ORDERED: ENOXAPARIN 40 MG/0.4 ML SYRINGE SQ SCH (09:00)
[2020-07-30 09:45] VITALS: BP 116/72; PULSE 82; RESP 16; TEMP 97.6
[2020-07-30] MEDS ORDERED: INFLUENZA VACCINE (6 MOS+) 60 MCG/0.5 ML SYRINGE IM ONE (09:50)
--- NOTE | 2020-07-30 12:04 | P.PN ---
Subjective Progress Note Date: 07/30/20 Principal diagnosis: CC: cholecystitis Patient states she has been walking in the hallways and is tolerating her diet. She states her abdominal pain has improved. She is looking forward to going home. Objective - Vital Signs Vital signs: Vital Signs Temp 97.6 F 07/30/20 08:00 Pulse 82 07/30/20 08:00 Resp 16 07/30/20 08:00 BP 116/72 07/30/20 08:00 Pulse Ox 94 L 07/30/20 08:00 Intake & Output 07/29/20 07/30/20 07/30/20 18:59 06:59 18:59 Intake Total 500 Output Total 5 600 Balance 495 -600 Weight 105.233 kg Intake: IV 500 Output: Urine 600 Estimated Blood Loss 5 Other: Voiding Method Toilet Toilet # Voids 1 - Exam General examination - Alert and Oriented 3 in NAD Heart - + S1S2 no murmurs Lungs - Clear to auscultation Abdomen diffuse tenderness to palpate as expected after surgery Extremities - No edema STONE GLUER - Moving all 4 extremities spontaneously Psych - Calm and cooperative - Labs CBC & Chem 7: 07/30/20 06:29 07/30/20 06:29 Labs: Abnormal Lab Results - Last 24 Hours (Table) 07/30/20 Range/Units 06:29 Chloride 109 H (98-107) mmol/L Glucose 100 H (74-99) mg/dL AST 89 H (14-36) U/L ALT 168 H (4-34) U/L Total Protein 6.1 L (6.3-8.2) g/dL Assessment and Plan Assessment: #Hypertension -Continue with home lisinopril #Moderate persistent asthma -Continue with home inhalers #Hyperglycemia -Check A1c #Abnormal LFTs -Likely secondary to cholecystitis #Status post laparoscopic cholecystectomy -Management including pain control as per the surgery service Patient is stable for discharge from medical standpoint.
--- NOTE | 2020-07-30 13:23 | P.DS ---
Providers Date of admission: 07/29/20 08:33 Expected date of discharge: 07/30/20 Attending physician: Johnson Maher Consults: 07/29/20 14:29 Consult Physician Routine Consulting Provider: Kenny Frias Consult Reason/Comments: MEDICAL MANAGEMENT Do you want consulting provider notified?: Already Contacted Primary care physician: Mick Santhosh [facility] Hospital Course: Discharge diagnosis 1. Acute Cholecystitis and cholelithiasis status post laparoscopic cholecystectomy Hospital course This is a 40-year-old female who presented with right upper quadrant abdominal pain that radiated to her back. Abdominal ultrasound showed evidence of cholelithiasis and gallbladder wall thickening. Common bile duct is dilated. And patient was admitted also for acute cholecystitis. Patient is status post laparoscopic cholecystectomy. She tolerated surgery well. She is tolerating diet. She is up and ambulating. She is passing gas. Afebrile. She is stable for discharge. Please refer to chart for any further details. Physician Retort Cooler note has been reviewed by physician. Signing provider agrees with the documented findings, assessment, and plan of care. Patient Condition at Discharge: Stable Plan - Discharge Summary New Discharge Prescriptions: New Ibuprofen [Motrin] 600 mg PO Q8HR PRN #30 tab PRN Reason: Pain Continue Cetirizine HCl 10 mg PO HS Montelukast [Singulair] 10 mg PO HS Fluticasone/Salmeterol [Advair 250-50 Diskus] 1 puff INHALATION RT-BID Albuterol Inhaler [Ventolin Hfa Inhaler] 2 puff INHALATION RT-QID PRN PRN Reason: Shortness Of Breath lisinopriL [Zestril] 20 mg PO DAILY Discharge Medication List Cetirizine HCl 10 mg PO HS 09/10/19 [History] Montelukast [Singulair] 10 mg PO HS 09/10/19 [History] Albuterol Inhaler [Ventolin Hfa Inhaler] 2 puff INHALATION RT-QID PRN 07/29/20 [History] Fluticasone/Salmeterol [Advair 250-50 Diskus] 1 puff INHALATION RT-BID 07/29/20 [History] lisinopriL [Zestril] 20 mg PO DAILY 07/29/20 [History] Ibuprofen [Motrin] 600 mg PO Q8HR PRN #30 tab 07/30/20 [Rx] Follow up Appointment(s)/Referral(s): Mick Trevizo [Primary Care Provider] - 1-2 days Johnson Maher MD [STAFF PHYSICIAN] - 1 Week Patient Instructions/Handouts: *Surgery [facility] - Laparoscopic Cholecystectomy Discharge Instructions Activity/Diet/Wound Care/Special Instructions: No driving while taking Holly No lifting over 10 pounds You may shower. No soaking or tub baths 2 weeks Very light activity until you are reevaluated at your follow up appointment with your surgeon Discharge Disposition: HOME SELF-CARE
[2020-07-30] MEDS ORDERED: SIMETHICONE 40 MG/0.6 ML DROPS 2,000 MG/30 ML BOTTLE PO SCH (13:30)
[2020-07-30 16:06] LABS: Hemoglobin A1C 5.2 % (4.0-6.0)
[2020-07-30] MEDS ORDERED: MONTELUKAST 10 MG TAB PO SCH (21:00)
== END 2020-07-30 13:57 | disposition home or self-care (01) ==
LOC: EC 06:34 → 6PED 08:33
PROVIDERS: ADMIT Surgery; ATTEND Surgery
DX: K80.10 Calculus of gallbladder with chronic cholecystitis without obstruction (principal); Z79.1 Long term (current) use of non-steroidal anti-inflammatories (NSAID); Z79.899 Other long term (current) drug therapy; I10 Essential (primary) hypertension; Z98.891 History of uterine scar from previous surgery; Z82.49 Family history of ischemic heart disease and other diseases of the circulatory system; Z82.61 Family history of arthritis; R74.01 Elevation of levels of liver transaminase levels; J45.40 Moderate persistent asthma, uncomplicated; K44.9 Diaphragmatic hernia without obstruction or gangrene; K83.8 Other specified diseases of biliary tract; K76.0 Fatty (change of) liver, not elsewhere classified; Z83.49 Family history of other endocrine, nutritional and metabolic diseases
CPT/HCPCS: 96376; 96361; 96374; 99285; 36415; 94640 ×2; 81025 ×2; 88304; 80053 ×2; 82150; 83605; 83690; 85025 ×2; 81001; 83036; 76705; 90686; 47562; G0378 ×2; G0008; J2543 ×2; J2250; J1644; J2710; J2765 ×2; J2405; J2001; J1650; J3010; J1170 ×3; J1885; J0330; J2704

== ENCOUNTER → 2021-04-01 | Outpatient (CLI) | payer OTHER ==
[2021-04-01 19:04] LABS: Basophils # (A) 0.01 X 10*3/uL (0.00-0.10); Basophils % (A) 0.1 %; Eosinophils # (A) 0 X 10*3/uL (0.04-0.35); Eosinophils % (A) 0 %; HCT 40.5 % (37.2-46.3); HGB 13.8 g/dL (12.0-15.0); Lymphocytes # (A) 1.58 X 10*3/uL (0.90-5.00); Lymphocytes % (A) 17.7 %; MCH 29.6 pg (27.0-32.0); MCHC 34.1 g/dL (32.0-37.0); MCV 86.7 fL (80.0-97.0); Mean Platelet Volume 10.4 fL (9.5-12.2); Monocytes # (A) 0.88 X 10*3/uL (0.20-1.00); Monocytes % (A) 9.9 %; Neutrophils # (A) 6.41 X 10*3/uL (1.80-7.70); Platelet Count 387 X 10*3/uL (140-440); RBC 4.67 X 10*6/uL (4.10-5.20); RDW 13.2 % (11.5-14.5); WBC 8.91 X 10*3/uL (4.50-10.00)
[2021-04-01 22:34] LABS: African American GFR (CKD) 79.9 (60.0-200.0); Albumin 5.3 g/dL (3.80-4.90); Albumin/Globulin Ratio 1.89 (1.60-3.17); Anion Gap 14.7 mmol/L (4.00-12.00); Calcium 9.9 mg/dL (8.7-10.3); Carbon Dioxide 18.3 mmol/L (21.6-31.8); Globulin 2.8 g/dL (1.6-3.3); Non-African American GFR(CKD) 68.9 (60.0-200.0); Total Bilirubin 0.8 mg/dL (0.2-1.2); Total Protein 8.1 g/dL (6.2-8.2)
== END | disposition home or self-care (01) ==
LOC: LABWHC1 12:48
PROVIDERS: ATTEND Family Medicine
DX: K52.9 Noninfective gastroenteritis and colitis, unspecified (principal); R11.2 Nausea with vomiting, unspecified
CPT/HCPCS: 36415; 80053; 82150; 83690; 85025

== ENCOUNTER → 2021-09-08 | Outpatient (CLI) | payer OTHER ==
--- NOTE | 2021-09-08 13:35 | XR ---
Bilateral hands HISTORY: Arthralgia 3 views of each hand submitted No comparisons Bone mineralization, joint spaces, alignment are maintained within the hands with exception of some s light medial deviation of the fifth phalanx in relation to the metacarpal. No fracture or dislocation . No evident joint erosion within the hands, no periostitis, periarticular calcification or periartic ular osteopenia. Within the capitate of the right and left wrist some erosion is suspected laterally. IMPRESSION: Some early changes of rheumatoid arthritis are questioned, MRI would be of increased sens itivity.
[2021-09-08 15:12] LABS: C Reactive Protein, High Sens 0.485 mg/L (0.000-3.000)
[2021-09-08 15:28] LABS: Rheumatoid Factor, Qnt <10 IU/mL (0-15)
[2021-09-08 17:51] LABS: Anti-DNA, DS unit <1.0 IU/mL; Cyclic Citrull Pep IgG Unit 1.3 U/mL; Cyclic Citrullinated Pep IgG NEGATIVE (NEGATIVE); DNA Double-Stranded NEGATIVE (NEGATIVE)
== END | disposition home or self-care (01) ==
LOC: LABWHC1 10:42
PROVIDERS: ATTEND Family Medicine
DX: M25.50 Pain in unspecified joint (principal)
CPT/HCPCS: 36415; 85652; 86038; 86141; 86200; 86225; 86235; 86431

== ENCOUNTER → 2021-10-23 | Outpatient (CLI) | payer OTHER ==
--- NOTE | 2021-10-27 14:40 | MM ---
Reason for exam: screening (asymptomatic). Baseline mammogram. Physical Findings: A clinical breast exam by your physician is recommended on an annual basis and results should be correlated with mammographic findings. MG 3D Screening Mammo W/Cad Bilateral CC and MLO view(s) were taken. There are scattered fibroglandular densities. There are benign appearing round calcifications bilaterally. There is no discrete abnormality. ASSESSMENT: Benign, BI-RAD 2 RECOMMENDATION: Routine screening mammogram of both breasts in 1 year.
== END | disposition home or self-care (01) ==
LOC: RADMAMWWP 10:25
PROVIDERS: ATTEND Family Medicine
DX: Z12.31 Encounter for screening mammogram for malignant neoplasm of breast (principal)
CPT/HCPCS: 77063; 77067

== ENCOUNTER → 2021-10-28 | Outpatient (CLI) | payer OTHER ==
--- NOTE | 2021-10-28 08:19 | CT ---
EXAMINATION TYPE: CT chest wo con DATE OF EXAM: 10/28/2021 INDICATION: Scarring of the Lung CT DLP: 508.10 mGy.cm Automated Exposure Control for Dose Reduction was Utilized. TECHNIQUE AND CONTRAST: CT scan of the chest without IV contrast administration. COMPARISON: CT dated 10/09/2019 FINDINGS: The previously seen linear bilateral basal and lingular atelectasis has markedly reduced in the inter im with minimal residual linear atelectasis/minimal scarring is noted, likely insignificant. Stable 5 mm calcified granuloma in the right lung apex. Unremarkable lungs otherwise. Patent central airways. No pleural or pericardial effusion. No gross cardiomegaly. Minimal aortic arch atherosclerotic calcif ication. No pathologically enlarged lymph nodes in the chest. Previous cholecystectomy. Mild degenera tive changes of the mid to lower thoracic spine. No aggressive bone lesion. IMPRESSION: Interval regression of the previously seen bilateral basal and lingular linear atelectasis with resid ual changes as described above, likely insignificant. No other significant pulmonary abnormality iden tified.
== END | disposition home or self-care (01) ==
LOC: RADCTMAIN 07:31
PROVIDERS: ATTEND Family Medicine
DX: J98.11 Atelectasis (principal)
CPT/HCPCS: 71250